=== PATIENT | male | born 1990 | race Caucasian/White ===

== ENCOUNTER 2021-03-10 11:09 | Inpatient (IN) | payer OTHER, MEDICAID, SELFPAY ==
[2021-03-10 11:11] VITALS: BP 162/96; PULSE 132; RESP 14; TEMP 36.6; O2SAT 95; BMI 28.3
--- NOTE | 2021-03-10 13:08 | ED.VIS.GEN ---
History of Present Illness Chief Complaint: ETOH Intox Informant: Patient Narrative: 30-year-old male presenting with EtOH withdrawal. Patient states that over the last year he is incrementally increased his drinking. He states that now he drinks about a gallon of vodka every day. When he stops drinking it only takes couple hours till he gets the shakes. Patient states that he recently tried a Xanax which he got off the street to try to help him detox but it only lasted for short while. Patient states he has no other significant other medical history. He is never had withdrawal seizure. Patient states he does not take any other drugs. He is a smoker. Past Medical History - Allergies and Home Meds Allergies/Adverse Reactions: Allergies No Known Allergies Allergy (Verified 03/10/21 11:11) Past Medical History: - - EtOH abuse Surgical History: noncontributory Lives: Alone Smoking Status: Current every day smoker Alcohol: Heavy Review of Systems General: Denies: Chills, Fever, Malaise, Subjective, Sweats, Weight loss, - Eyes: Denies: Visual changes - bilaterally, Diplopia ENT: Denies: Rhinorrhea, Sore throat Cardiovascular: Reports: Palpitations. Denies: Chest pain Respiratory: Denies: Dyspnea, Cough, Dyspnea on exertion Gastrointestinal: Denies: Abdominal pain, Nausea, Vomiting, Diarrhea, Melena, Hematochezia Genitourinary: Denies: Dysuria, Hematuria, Frequency Musculoskeletal: Denies: Back pain, Extremity Pain Skin: Denies: Rash, Wounds Neurological: Denies: Headache, Weakness, Numbness Psych: Denies: Depression, Anxiety, Suicidal thoughts, Suicidal ideations, -, - Physical Exam Vital Signs/Narrative: Vital Signs Temp Pulse Resp BP Pulse Ox 03/10/21 11:11 97.9 F 132 H 14 162/96 H 95 Inital Vital Signs reviewed: Yes General: Well nourished, No Acute Distress Head: Normocephalic, Atraumatic Eyes: Perrl. Negative for: Scleral icterus ENT: Moist mucous membranes, No rhinorrhea Cardiovascular: Regular rate, Regular rhythm Abdomen: Soft, Nontender, Nondistended Back: Nontender, Normal Inspection Extremities: Nontender, No edema Skin: Normal color, No rash. Negative for: Cyanosis, Diaphoresis, Jaundice Neurological: Alert, Oriented x3, Cranial nerves II-XII grossly intact Psychological: Normal affect, Normal Mood Diagnostic/Tx/Re-eval Clinical Impression(s) from Imaging Studies Chest X-Ray 03/10/21 13:22 IMPRESSION: Normal x-ray examination of the chest. Electronically Signed: Ronnie Chapin MD at 13:46 EDT , Service support , Laboratory Data 03/10/21 03/10/21 03/10/21 12:50 12:50 12:50 WBC 6.6 RBC 5.49 Hgb 17.9 H Hct 51.8 MCV 94.4 H MCH 32.6 H MCHC 34.6 RDW Std Deviation 46.0 H RDW Coeff of Geremias 13.2 Plt Count 263 MPV 9.4 Immature Gran % (Auto) 0.600 Neut % (Auto) 68.2 Lymph % (Auto) 20.6 [place] % (Auto) 9.8 Eos % (Auto) 0.0 Baso % (Auto) 0.8 Absolute Neuts (auto) 4.5 Absolute Lymphs (auto) 1.35 Nucleated RBC % 0 PT 11.3 L INR 0.9 Sodium 141 Potassium 3.4 L Chloride 101 Carbon Dioxide 31.0 Anion Gap 9 BUN 10 Creatinine 0.98 Estim Creat Clear Calc 117.39 Est GFR (MDRD) Af Amer 115 Est GFR (MDRD) Non-Af 95 BUN/Creatinine Ratio 10.2 Glucose 116 H Calcium 8.5 Total Bilirubin 0.30 Direct Bilirubin 0.12 AST 55 H ALT 119 H Alkaline Phosphatase 82 Troponin I < 0.015 Total Protein 7.7 Albumin 4.1 Globulin 3.6 Albumin/Globulin Ratio 1.1 Ethyl Alcohol 03/10/21 12:50 WBC RBC Hgb Hct MCV MCH MCHC RDW Std Deviation RDW Coeff of Geremias Plt Count MPV Immature Gran % (Auto) Neut % (Auto) Lymph % (Auto) [place] % (Auto) Eos % (Auto) Baso % (Auto) Absolute Neuts (auto) Absolute Lymphs (auto) Nucleated RBC % PT INR Sodium Potassium Chloride Carbon Dioxide Anion Gap BUN Creatinine Estim Creat Clear Calc Est GFR (MDRD) Af Amer Est GFR (MDRD) Non-Af BUN/Creatinine Ratio Glucose Calcium Total Bilirubin Direct Bilirubin AST ALT Alkaline Phosphatase Troponin I Total Protein Albumin Globulin Albumin/Globulin Ratio Ethyl Alcohol 330.0 H* - Medical Decision Making Patient presents with EtOH withdrawal and is hypertensive and tachycardic. He is given IV fluids and 2 mg of Ativan IV. EKG shows sinus rhythm at 121 bpm without signs of ischemic change. This x-ray shows no acute cardiopulmonary process as interpreted by myself and radiology does agree. Patient's H&H is stable. Platelets are normal. Renal function and electrolytes are normal except for potassium of 3.4. EtOH is 333. LFTs mildly elevated. Troponin is negative. Patient discussed with hospitalist who accepted patient to [facility]. Impression: 1. EtOH withdrawal 2. EtOH intoxication ED Disposition - Plan for ED Patient: Disposition: Acute Care Hospital [facility]
--- NOTE | 2021-03-10 13:19 | EKG12_ITS ---
Test Reason : MEDICAL CLEARANCE Blood Pressure : / mmHG Vent. Rate : 121 BPM Atrial Rate : 121 BPM P-R Int : 148 ms QRS Dur : 088 ms QT Int : 302 ms P-R-T Axes : 038 -53 028 degrees QTc Int : 428 ms Sinus tachycardia Left anterior fascicular block Abnormal ECG Confirmed by DAIJA LANDA, RO ([id number]), electronic news gathering editor JESSICA BARTLETT ([id number]) on 03/12/2021 8:58:47 AM Referred By: ELLEN Confirmed By:RO CHOE MD
--- NOTE | 2021-03-10 13:22 | RAD_ITS ---
STUDY: X-RAY CHEST REASON FOR EXAM: Male, 30 years old. Tachycardia TECHNIQUE: Single AP portable view of the chest. COMPARISON: None. FINDINGS: The lungs are clear and expanded. There is no demonstrated pleural abnormality. Normal size heart. Normal mediastinum and mayito. Normal visualized pulmonary arteries. Normal visualized aortic arch and descending thoracic aorta. Normal visualized thoracic spine. Normal visualized ribs, clavicles, and shoulders. There is no demonstrated abnormality of the visualized soft tissue structures of the upper abdomen. RAD/Chest 1 View (Portable) IMPRESSION: Normal x-ray examination of the chest. Electronically Signed: Ronnie Chapin MD at 13:46 EDT , Service support ,
[2021-03-10] MEDS: 0.9% Normal Saline 1,000 ML 1000 ML IV (13:35)
[2021-03-10] MEDS: LORazepam 2 MG/ML Syringe IV (13:35)
[2021-03-10 13:37] LABS: Absolute Lymphocyte Count 1.35 X10^3/uL (0.83-4.51); Absolute Neutrophil Count 4.5 X10^3/uL (2.0-7.7); Basophil# 0.05 X10^3/uL; Basophil% 0.8 % (0-1); Hematocrit 51.8 % (40-54); Hemoglobin 17.9 g/dL (13.0-16.5); Lymphocyte # 1.35 X10^3/ul (0.83-4.51); Lymphocyte % 20.6 % (19-41); Mean Corp Hgb Conc 34.6 g/dL (32-36); Mean Corpuscular Hgb 32.6 pg (27.0-32.0); Mean Corpuscular Volume 94.4 fL (80-94); Mean Platelet Vol. 9.4 fl (6.2-12.0); Monocyte# 0.64 X10^3/uL; Monocyte% 9.8 % (0-10); NRBC Flagged by Analyzer 0 % (0-5); Neutrophil # 4.48 X10^3/uL (2.7-7.7); Neutrophil % 68.2 % (47-70); Platelet Count 263 K/mm3 (150-450); RBC Distribution Width CV 13.2 % (11.6-14.6); Red Blood Count 5.49 M/mm3 (4.6-6.2); White Blood Count 6.6 K/mm3 (4.4-11.0)
[2021-03-10 13:42] LABS: International Normalized Ratio 0.9; Prothrombin Time (Protime)PT. 11.3 SECONDS (11.7-14.9)
[2021-03-10 13:56] LABS: ALB/GLOB Ratio 1.1 RATIO (0.9-2.4); AST(SGOT) 55 U/L (15-37); Alanine Aminotransfer ALT/SGPT 119 U/L (16-61); Albumin, Serum 4.1 g/dL (3.2-5.0); Alkaline Phosphatase 82 U/L (45-117); Anion Gap 9 (5-15); BUN 10 mg/dL (7-18); BUN/Creat Ratio 10.2 RATIO (10-20); Bilirubin, Direct 0.12 mg/dL (0.00-0.30); Calcium,Total 8.5 mg/dL (8.5-10.1); Chloride 101 mmol/L (98-107); Creatinine, Serum 0.98 mg/dL (0.70-1.30); EST Glomerular Filtration Rate 95 mL/min (>60); Est Glom Filt Rate - Afr Amer 115 mL/min (>60); Estimated Creatinine Clearance 117.39 ml/min; Globulin 3.6 g/dL (2.2-4.2); Glucose 116 mg/dL (74-106); Potassium 3.4 mmol/L (3.5-5.1); Protein, Total 7.7 g/dL (6.4-8.2); Sodium Level 141 mmol/L (136-145)
--- NOTE | 2021-03-10 14:39 | CM.ED ---
SOCIAL WORK Referral Source: Dr. Negron Reason for Consult: Substance Abuse Patient presents to [facility] ER for alcohol intoxication, requesting detox. Call to [facility] Treatment Navigator, Rosario. Updated on patient's admission. Rosario reports will update Gunjan who will complete assessment tomorrow. Plan: Admit to [facility], CLAIM REVIEW MEDICAL DIRECTOR, DENTIST/OWNER
--- NOTE | 2021-03-10 14:43 | HP.PCM_ITS ---
Problem List (1) Acute alcohol withdrawal Status: Acute (2) Acute alcohol intoxication Status: Acute (3) Tobacco abuse Status: Chronic (4) Alcohol abuse Status: Chronic History of Present Illness Date of Admission: 03/10/21 Chief Complaint: Requesting admission for alcohol detox. The patient is a 30 year old M with no significant past medical history presented to the emergency room requesting admission for acute alcohol intoxication with impending withdrawal for medical stabilization. Patient stated that he has been drinking over the last year, has been incrementally increasing his amount of drinking and nowadays, he drinks almost 1 gallon of vodka every day. He stated that he has lots of family issues and stressful s ituations and he just wants to forget. He mentioned that he tried to self detox with using Xanax that he got from his a friend but that did not work. He mentioned that he never went for detox program in the past. He denied use of other street drugs. Apart from anxiety which improved after he received Ativan in the ED, no other acute withdrawal symptoms. In the emergency department, he was tachycardic, blood pressure was slight elevated, other vital signs were stable. Routine blood work was remarkable for potassium of 3.4, otherwise normal. LFT revealed slightly elevated liver transaminases, alk phos and bilirubin are normal. EKG revealed sinus tachycardia, otherwise normal. Troponin is negative. Blood alcohol level was 330. Urine drug screen is pending. Patient is being admitted for acute alcohol intoxication/impending withdrawal for medical stabilization. Past Medical History Past Medical History (Chronic Problems): Chronic Problems Tobacco abuse (Chronic) Alcohol abuse (Chronic) Allergies No Known Allergies Allergy (Verified 03/10/21 11:11) Home Medications: Ambulatory Orders Medication Instructions Recorded NK 03/10/21 Surgical History: noncontributory Psychiatric History: No pertinent psych hx Lives: With Family Smoking Status: Current every day smoker Tobacco Use: Cigarettes Alcohol: Heavy Drugs: None - *Family History Maternal History Items: No pertinent history Paternal History Items: No pertinent history Review of Systems Constitutional: Denies: Anorexia, Chills, Fever, Weakness Eyes: Denies: Blurred vision, Double vision, Drainage, Redness HEENT: Denies: Difficulty Hearing, Dysphasia, Ear Pain, Eye Pain, Nasal Congestion, Sore Throat Cardiovascular: Denies: Chest Pain, Claudication, Chest Tightness, Edema, Heaviness, Palpitations, Syncope Respiratory: Denies: Cough, Pleuritic Pain, Shortness of Breath, Sputum production, Wheezing Gastrointestinal: Denies: Abdominal Pain, Constipation, Diarrhea, Nausea, Vomiting Genitourinary: Denies: Dysuria, Frequency, Hematuria Musculoskeletal: Denies: Arm Pain, Back Pain, Foot Pain Skin: Denies: Dryness, Rash Neurological: Denies: Balance problems, Double vision, Change in Speech, Slurred speech, Headaches, Incoordination Psychiatric: Denies: Anxiety, Depression Endocrine: Denies: Change in Body Habitus, Polydipsia, Polyuria VTE Information - Inpt Only VTE Present on Admission: No VTE Mechan Device Prophylaxis: None VTE Pharm Prophylaxis ordered?: No Patient Problems: Active and Suspected Problems Acute alcohol withdrawal (Acute) Acute alcohol intoxication (Acute) - Physical Exam Vitals/I&O's: Vital Signs Temp Pulse Resp BP Pulse Ox 97.9 F 132 H 14 162/96 H 95 03/10/21 11:11 03/10/21 11:11 03/10/21 11:11 03/10/21 11:11 03/10/21 11:11 Oxygen Delivery Method Room Air Weight: 203 lb 7.787 oz Body Mass Index (BMI) 28.3 General: Alert, Oriented x3, Cooperative, No apparent distress HEENT: Atraumatic, PERRLA, EOMI, Normocephalic Oral: Moist Mucosa, No Gingival or Mucosal Lesions/ Ulcerations Neck: Supple, No JVD, Negative Carotid Bruits, Trachea Midline, Thyroid Normal Size and Texture Lungs: Clear to auscultation, Normal air movement, No rhonchi, No wheeze, No rales Cardiovascular: Regular rate, Regular Rhythm, Normal S1, Normal S2, PMI Normal, Tachycardic Abdomen: Bowel Sounds Present, Soft, Non Tender, Non-Distended, No Hepato- splenomegaly Extremities: No clubbing, No cyanosis, No edema Skin: No rashes, No breakdown Lymphatic: No Cervical, Supraclavicular, or Inguinal Adenopathy Neurological: Cranial nerves II-XII grossly intact, Motor Exam 5/5 strength throughout Psych/Mental Status: Normal Affect, Appropriate, Alert and oriented to time, place, person, mood and affect Laboratory Results 03/10/21 12:50: WBC 6.6, RBC 5.49, Hgb 17.9 H, Hct 51.8, MCV 94.4 H, MCH 32.6 H, MCHC 34.6, RDW Std Deviation 46.0 H, RDW Coeff of Geremias 13.2, Plt Count 263, MPV 9.4, Immature Gran % (Auto) 0.600, Neut % (Auto) 68.2, Lymph % (Auto) 20.6, [place] % (Auto) 9.8, Eos % (Auto) 0.0, Baso % (Auto) 0.8, Absolute Neuts (auto) 4.5, Absolute Lymphs (auto) 1.35, Nucleated RBC % 0 03/10/21 12:50: PT 11.3 L, INR 0.9 03/10/21 12:50: Sodium 141, Potassium 3.4 L, Chloride 101, Carbon Dioxide 31.0, Anion Gap 9, BUN 10, Creatinine 0.98, Estim Creat Clear Calc 117.39, Est GFR (MDRD) Af Amer 115, Est GFR (MDRD) Non-Af 95, BUN/Creatinine Ratio 10.2, Glucose 116 H, Calcium 8.5, Total Bilirubin 0.30, Direct Bilirubin 0.12, AST 55 H, ALT 119 H, Alkaline Phosphatase 82, Troponin I < 0.015, Total Protein 7.7, Albumin 4.1, Globulin 3.6, Albumin/Globulin Ratio 1.1 03/10/21 12:50: Ethyl Alcohol 330.0 H* Assessment/Plan All Active Problems Acute alcohol withdrawal (Acute) Acute alcohol intoxication (Acute) This is a 30 years old male patient presented to the emergency room requesting admission for acute alcohol intoxication/withdrawal for medical stabilization. #1 acute alcohol desiccation/impending withdrawal: Admission blood alcohol level was 330. Urine drug screen is pending. Last drink was this morning. Plan: Admit to MedSurg floor, initiate alcohol withdrawal protocol with tapering phenobarbital, thiamine and folic acid supplement, as needed Bentyl, Neurontin, Vistaril, ibuprofen, Imodium, Zofran and trazodone, consult 180 program. #2 hypokalemia: Replace with p.o. K. Dur 40 mEq x 1. #3 elevated LFT: Due to alcoholic hepatitis. Bilirubin and alk phos are normal. #4 tobacco abuse: NicoDerm patch. #5 DVT prophylaxis: Low risk patient, no prophylaxis indicated. This note was generated with [employer] dictation software. It may contain incorrect words, spelling, and punctuation that were not noted in checking the note before signing. Inpatient E&M: [id number] Init Hosp L2
[2021-03-10 14:48] VITALS: BMI 28.4
[2021-03-10 14:52] VITALS: BP 162/96; PULSE 132; RESP 14; TEMP 36.6; O2SAT 97
[2021-03-10 15:14] VITALS: BMI 26.9
[2021-03-10 15:15] VITALS: BP 140/90; PULSE 105; RESP 18; TEMP 36.7; O2SAT 96
[2021-03-10 15:46] LABS: Lipase 118 U/L (73-393)
[2021-03-10 16:34] VITALS: BP 139/96; PULSE 112; RESP 18; TEMP 36.6; O2SAT 98
[2021-03-10] MEDS: 0.9% Normal Saline 1,000 ML 100 ML IV (16:39)
[2021-03-10] MEDS: Potassium Chloride Oral Tablet 20 MEQ 40 MEQ PO (16:43)
[2021-03-10] MEDS: hydrOXYzine PAM 25 MG Capsule 50 MG PO ×2 (16:43→22:14)
[2021-03-10] MEDS: Phenobarbital 32.4 MG Tablet 64.8 MG PO ×2 (16:44→20:04)
[2021-03-10] MEDS: Ibuprofen 600 MG Tablet PO (16:44)
[2021-03-10] MEDS: Dicyclomine 10 MG Capsule 20 MG PO (16:44)
[2021-03-10] MEDS: Ondansetron 8 MG Tablet PO (16:44)
[2021-03-10 17:54] LABS: Amphetamine Urine VISTA NEGATIVE (<1000 ng/mL); Barbiturate Urine VISTA NEGATIVE (< 200 ng/mL); Benzodiazepine Urine VISTA POSITIVE (< 200 ng/mL); Cocaine Urine VISTA NEGATIVE (< 300 ng/mL); Ecstacy Urine VISTA NEGATIVE (< 500 ng/mL); Methadone Urine VISTA NEGATIVE (< 300 ng/mL); PCP Urine VISTA NEGATIVE (< 25 ng/mL); THC Urine VISTA NEGATIVE (< 50 ng/mL); Vista UDS pH Range 6
[2021-03-10 20:02] VITALS: BP 153/83; PULSE 103; RESP 18; TEMP 36.6; O2SAT 95
[2021-03-10] MEDS: Gabapentin 300 MG Capsule PO (20:04)
[2021-03-10] MEDS: traZODone 100 MG Tablet PO (22:14)
[2021-03-11 00:43] VITALS: BP 94/73; PULSE 67; RESP 18; TEMP 36.8; O2SAT 98
[2021-03-11] MEDS: Dicyclomine 10 MG Capsule 20 MG PO ×3 (00:47→20:06)
[2021-03-11] MEDS: Ibuprofen 600 MG Tablet PO ×2 (00:47→09:38)
[2021-03-11] MEDS: Phenobarbital 32.4 MG Tablet 64.8 MG PO ×6 (00:47→19:57)
[2021-03-11] MEDS: hydrOXYzine PAM 25 MG Capsule 50 MG PO ×3 (04:15→16:11)
--- NOTE | 2021-03-11 09:25 | ADDICTION ---
This senior grant writer met with PT to conduct ASAM, MSE, AUDIT assessments and to plan for d/c. PT A+Ox4. All assessments completed, faxed to [facility] and placed in PT's chart. PT refused f/u coordination but did engage with this senior grant writer to complete assessments and was appropriate throughout. PT states that he is considering going into treatment with [facility] in [facility]. This senior grant writer provided resources to patient including treatment agency contact information in [facility]. PT states that his father will be providing transportation upon d/c from [facility].
[2021-03-11 09:28] VITALS: BP 154/77; PULSE 78; RESP 18; TEMP 36.3; O2SAT 98
[2021-03-11] MEDS: Folic Acid 1 MG Tablet PO (09:35)
[2021-03-11] MEDS: Thiamine Hydrochloride 100 MG Tablet PO (09:36)
[2021-03-11] MEDS: Ondansetron 8 MG Tablet PO (09:38)
[2021-03-11] MEDS: Gabapentin 300 MG Capsule PO (09:38)
--- NOTE | 2021-03-11 11:07 | PN.HOSP_ITS ---
Subjective Subjective: CIWA of 17 this morning. Objective Data Objective Data Vital Signs: Vital Signs Temp Pulse Resp BP Pulse Ox 97.3 F L 78 18 154/77 H 98 03/11/21 09:28 03/11/21 09:28 03/11/21 09:28 03/11/21 09:28 03/11/21 09:28 Oxygen Delivery Method Room Air Weight: 198 lb 3.129 oz Body Mass Index (BMI) 26.9 Intake & Output: Intake and Output for Last 24 Hours 03/10/21 03/11/21 03/12/21 03:59 03:59 03:59 Intake Total 2500 / 2500 Balance 2500 / 2500 Lab / Micro Data Result Diagrams: 03/10/21 12:50 03/10/21 12:50 Labs: Laboratory Results - last 24 hr 03/10/21 03/10/21 03/10/21 12:50 12:50 12:50 WBC 6.6 RBC 5.49 Hgb 17.9 H Hct 51.8 MCV 94.4 H MCH 32.6 H MCHC 34.6 RDW Std Deviation 46.0 H RDW Coeff of Geremias 13.2 Plt Count 263 MPV 9.4 Immature Gran % (Auto) 0.600 Neut % (Auto) 68.2 Lymph % (Auto) 20.6 [place] % (Auto) 9.8 Eos % (Auto) 0.0 Baso % (Auto) 0.8 Absolute Neuts (auto) 4.5 Absolute Lymphs (auto) 1.35 Nucleated RBC % 0 PT 11.3 L INR 0.9 Sodium 141 Potassium 3.4 L Chloride 101 Carbon Dioxide 31.0 Anion Gap 9 BUN 10 Creatinine 0.98 Estim Creat Clear Calc 117.39 Est GFR (MDRD) Af Amer 115 Est GFR (MDRD) Non-Af 95 BUN/Creatinine Ratio 10.2 Glucose 116 H Calcium 8.5 Total Bilirubin 0.30 Direct Bilirubin 0.12 AST 55 H ALT 119 H Alkaline Phosphatase 82 Troponin I < 0.015 Total Protein 7.7 Albumin 4.1 Globulin 3.6 Albumin/Globulin Ratio 1.1 Lipase Urine Opiates Screen Urine Methadone Screen Ur Barbiturates Screen Ur Phencyclidine Scrn Ur Amphetamines Screen U Methamphetamin-MDMA U Benzodiazepines Scrn Urine Cocaine Screen U Cannabinoids Screen Ur Drug Screen Comment Ethyl Alcohol 03/10/21 03/10/2121 12:50 12:50 17:20 WBC RBC Hgb Hct MCV MCH MCHC RDW Std Deviation RDW Coeff of Geremias Plt Count MPV Immature Gran % (Auto) Neut % (Auto) Lymph % (Auto) [place] % (Auto) Eos % (Auto) Baso % (Auto) Absolute Neuts (auto) Absolute Lymphs (auto) Nucleated RBC % PT INR Sodium Potassium Chloride Carbon Dioxide Anion Gap BUN Creatinine Estim Creat Clear Calc Est GFR (MDRD) Af Amer Est GFR (MDRD) Non-Af BUN/Creatinine Ratio Glucose Calcium Total Bilirubin Direct Bilirubin AST ALT Alkaline Phosphatase Troponin I Total Protein Albumin Globulin Albumin/Globulin Ratio Lipase 118 Urine Opiates Screen NEGATIVE Urine Methadone Screen NEGATIVE Ur Barbiturates Screen NEGATIVE Ur Phencyclidine Scrn NEGATIVE Ur Amphetamines Screen NEGATIVE U Methamphetamin-MDMA NEGATIVE U Benzodiazepines Scrn POSITIVE H Urine Cocaine Screen NEGATIVE U Cannabinoids Screen NEGATIVE Ur Drug Screen Comment Ethyl Alcohol 330.0 H* Radiography Diagnostic Testing: Radiology Impression Chest X-Ray 03/10/21 13:22 IMPRESSION: Normal x-ray examination of the chest. Electronically Signed: Ronnie Chapin MD at 13:46 EDT , Service support , Physical Exam Const alert, oriented x3 and no apparent distress HEENT moist oral mucous membranes Head and Scalp: normocephalic Eyes PERRL, EOMs intact bilaterally and conjunctivae normal Neck supple and no JVD Resp normal respiratory effort, no retractions, no use of accessory muscles and clear to auscultation bilaterally Auscultation: Negative for crackles, rales, rhonchi or wheezes Cardio regular rate, regular rhythm, S1 normal heart sound, S2 normal heart sound, no murmurs and no gallops GI normal to inspection, nondistended, normoactive bowel sounds, soft to palpation and non-tender; Negative for hepatosplenomegaly Extremity normal to inspection and no clubbing, cyanosis or edema Skin no rashes or lesions noted Neuro moves all extremities, no focal motor deficits and no sensory deficits noted Psych mental status grossly normal and affect normal Assessment & Plan Assessment/Plan (1) Acute alcohol withdrawal: Status: Acute (2) Elevated LFTs: Status: Acute Code(s): R79.89 - Other specified abnormal findings of blood chemistry (3) Tobacco abuse: Status: Chronic Code(s): Z72.0 - Tobacco use (4) Alcohol abuse: Status: Chronic Code(s): F10.10 - Alcohol abuse, uncomplicated Plan: 1. Acute alcohol withdrawal/elevated LFTs/tobacco abuse -Continue with alcohol withdrawal protocol -Plan for outpatient follow-up with 180 -We will continue to monitor his LFTs though this is obviously secondary to his drinking -Discussed cessation, and will place him on a NicoDerm patch DVT: Ambulation Inpatient E&M: [id number] Subs Hosp L2
[2021-03-11 12:17] VITALS: BP 136/83; PULSE 65; RESP 18; TEMP 36.7; O2SAT 99
[2021-03-11 16:04] VITALS: BP 123/85; PULSE 68; RESP 18; TEMP 36.5; O2SAT 94
[2021-03-11 21:00] VITALS: BP 134/83; PULSE 75; RESP 16; TEMP 36.6; O2SAT 96
[2021-03-12] MEDS: Phenobarbital 32.4 MG Tablet 64.8 MG PO ×4 (00:24→13:08)
[2021-03-12 03:00] VITALS: BP 130/71; PULSE 61; RESP 16; TEMP 36.4; O2SAT 98
[2021-03-12 06:27] LABS: Absolute Lymphocyte Count 0.99 X10^3/uL (0.83-4.51); Absolute Neutrophil Count 2.9 X10^3/uL (2.0-7.7); Basophil# 0.02 X10^3/uL; Basophil% 0.5 % (0-1); Hematocrit 50.3 % (40-54); Hemoglobin 16.9 g/dL (13.0-16.5); Lymphocyte # 0.99 X10^3/ul (0.83-4.51); Lymphocyte % 22.8 % (19-41); Mean Corp Hgb Conc 33.6 g/dL (32-36); Mean Corpuscular Hgb 31.4 pg (27.0-32.0); Mean Corpuscular Volume 93.5 fL (80-94); Mean Platelet Vol. 9.8 fl (6.2-12.0); Monocyte# 0.36 X10^3/uL; Monocyte% 8.3 % (0-10); NRBC Flagged by Analyzer 0 % (0-5); Neutrophil # 2.93 X10^3/uL (2.7-7.7); Neutrophil % 67.5 % (47-70); Platelet Count 156 K/mm3 (150-450); RBC Distribution Width CV 12.8 % (11.6-14.6); RBC Distribution Width SD 43.9 fl (35.1-43.9); Red Blood Count 5.38 M/mm3 (4.6-6.2); White Blood Count 4.3 K/mm3 (4.4-11.0)
[2021-03-12 06:51] LABS: AST(SGOT) 30 U/L (15-37); Alanine Aminotransfer ALT/SGPT 104 U/L (16-61); Albumin, Serum 3.2 g/dL (3.2-5.0); Alkaline Phosphatase 86 U/L (45-117); Anion Gap 5 (5-15); BUN 10 mg/dL (7-18); BUN/Creat Ratio 12.3 RATIO (10-20); Calcium,Total 8.5 mg/dL (8.5-10.1); Chloride 104 mmol/L (98-107); Creatinine, Serum 0.81 mg/dL (0.70-1.30); EST Glomerular Filtration Rate 118 mL/min (>60); Est Glom Filt Rate - Afr Amer 143 mL/min (>60); Estimated Creatinine Clearance 146.36 ml/min; Globulin 3.3 g/dL (2.2-4.2); Glucose 92 mg/dL (74-106); Potassium 3.8 mmol/L (3.5-5.1); Protein, Total 6.5 g/dL (6.4-8.2); Sodium Level 136 mmol/L (136-145)
[2021-03-12 09:00] VITALS: BP 150/85; PULSE 86; RESP 18; TEMP 36.7; O2SAT 96
[2021-03-12] MEDS: Thiamine Hydrochloride 100 MG Tablet PO (09:08)
[2021-03-12] MEDS: Folic Acid 1 MG Tablet PO (09:08)
--- NOTE | 2021-03-12 11:13 | PCM.DC ---
Discharge Instructions Outpatient Procedure Reason For Visit: ACUTE ALCOHOL INTOXICATION/IMPENDING WITHDRAWAL Diet Discharge Diet: No restrictions Activity Discharge Activity: Return to Normal Activity Dressing / Incision Call your doctor if you observe: Fever of 101 or Higher, Shortness of breath, Dizziness, Fainting spells, Swelling in the ankles, Chest pain and Increased palpitations (irregular heartbeat) Follow Up Care Test Results: Test results from this visit will be discussed in further detail at your follow-up appointment, if applicable. Discharge Plan Admission Admit Date/Time: 03/10/21 14:20 Attending Provider: Nik Marie Primary Care Provider: Care Physician,No Primary Instructions Patient Instructions: ED Alcohol Intoxication, ED Alcohol Abuse Additional Instructions / Restrictions: Follow-up with me 180 on discharge Discharge Orders/Prescriptions Prescriptions: No Action NK RF: 0 Referrals: Care Physician,No Primary [Primary Care Provider] - Disposition Patient Disposition: Home, self care
--- NOTE | 2021-03-12 13:59 | DS.PCM_ITS ---
Providers Date of Admission: 03/10/21 Primary Care Physician: No Primary Care Phys Reason For Visit: ACUTE ALCOHOL INTOXICATION/IMPENDING WITHDRAWAL Diagnosis Discharge Diagnosis (1) Acute alcohol withdrawal: Status: Acute (2) Elevated LFTs: Status: Chronic Code(s): R79.89 - Other specified abnormal findings of blood chemistry (3) Tobacco abuse: Status: Chronic Code(s): Z72.0 - Tobacco use (4) Alcohol abuse: Status: Chronic Code(s): F10.10 - Alcohol abuse, uncomplicated Medications at Discharge Home Medications NK 03/10/21 Hospital Course Operations None Procedures None Summary of Care Provided Minutes Spent on Discharge: 35 Hospital Course: PEr HPI: The patient is a 30 year old M with no significant past medical history presented to the emergency room requesting admission for acute alcohol intoxication with impending withdrawal for medical stabilization. Patient stated that he has been drinking over the last year, has been incrementally increasing his amount of drinking and nowadays, he drinks almost 1 gallon of vodka every day. He stated that he has lots of family issues and stressful situations and he just wants to forget. He mentioned that he tried to self detox with using Xanax that he got from his a friend but that did not work. He mentioned that he never went for detox program in the past. He denied use of other street drugs. Apart from anxiety which improved after he received Ativan in the ED, no other acute withdrawal symptoms. In the emergency department, he was tachycardic, blood pressure was slight elevated, other vital signs were stable. Routine blood work was remarkable for potassium of 3.4, otherwise normal. LFT revealed slightly elevated liver transaminases, alk phos and bilirubin are normal. EKG revealed sinus tachycardia, otherwise normal. Troponin is negative. Blood alcohol level was 330. Urine drug screen is pending. Patient is being admitted for acute alcohol intoxication/impending withdrawal for medical stabilization. Hospital Course: 1. Acute alcohol withdrawal/elevated LFTs/tobacco [id number] male presented to the hospital requesting detox and was going through alcohol withdrawal. Today he requested to be discharged home because he has child support payments to make and he cannot afford to miss anymore work as he was going to lose his job. I discussed with him that in the long-term it would be better for him to stay in complete the detox protocol and meet with 182 have a better chance of ensuring sobriety, however he elected to go home despite this discussion. LFTs did improve on the day of discharge, and I requested that if he has further withdrawal symptoms to return to the hospital, which he acknow ledged. Physical Exam Const alert, oriented x3 and no apparent distress HEENT moist oral mucous membranes Eyes PERRL, EOMs intact bilaterally and conjunctivae normal Neck supple and no JVD Resp normal respiratory effort, no retractions, no use of accessory muscles and clear to auscultation bilaterally Auscultation: Negative for crackles, rales, rhonchi or wheezes Cardio regular rate, regular rhythm, S1 normal heart sound, S2 normal heart sound, no murmurs and no gallops GI normal to inspection, nondistended, normoactive bowel sounds, soft to palpation and non-tender; Negative for hepatosplenomegaly Extremity normal to inspection and no clubbing, cyanosis or edema Skin no rashes or lesions noted Neuro moves all extremities, no focal motor deficits and no sensory deficits noted Psych mental status grossly normal and affect normal ABG / Lab / Microbiology Data Result Diagrams: 03/12/21 05:50 03/12/21 05:50 Laboratory: Laboratory Results - last 24 hr 03/12/21 03/12/21 05:50 05:50 WBC 4.3 L RBC 5.38 Hgb 16.9 H Hct 50.3 MCV 93.5 MCH 31.4 MCHC 33.6 RDW Std Deviation 43.9 RDW Coeff of Geremias 12.8 Plt Count 156 MPV 9.8 Immature Gran % (Auto) 0.900 Neut % (Auto) 67.5 Lymph % (Auto) 22.8 [place] % (Auto) 8.3 Eos % (Auto) 0.0 Baso % (Auto) 0.5 Absolute Neuts (auto) 2.9 Absolute Lymphs (auto) 0.99 Nucleated RBC % 0 Sodium 136 Potassium 3.8 Chloride 104 Carbon Dioxide 27.0 Anion Gap 5 BUN 10 Creatinine 0.81 Estim Creat Clear Calc 146.36 Est GFR (MDRD) Af Amer 143 Est GFR (MDRD) Non-Af 118 BUN/Creatinine Ratio 12.3 Glucose 92 Calcium 8.5 Total Bilirubin 0.30 AST 30 ALT 104 H Alkaline Phosphatase 86 Total Protein 6.5 Albumin 3.2 Globulin 3.3 Albumin/Globulin Ratio 1.0 D/C Instructions Discharge Diet: No restrictions Discharge Activity: Return to Normal Activity Call your doctor if you observe: Fever of 101 or Higher, Shortness of breath, Dizziness, Fainting spells, Swelling in the ankles, Chest pain and Increased palpitations (irregular heartbeat) Meaningful Use Info Meaningful Use Diagnoses (Choose all that apply): None applicable Discharge Plan Admission Admit Date/Time: 03/10/21 14:20 Attending Provider: Nik Marie Primary Care Provider: Care Physician,No Primary Instructions Patient Instructions: ED Alcohol Intoxication, ED Alcohol Abuse Additional Instructions / Restrictions: Follow-up with me 180 on discharge Discharge Orders/Prescriptions Prescriptions: No Action NK RF: 0 Referrals: Care Physician,No Primary [Primary Care Provider] - Disposition Patient Disposition: Home, self care Inpatient E&M: 95882 Disch Hosp
== END 2021-03-12 13:15 | disposition home or self-care (01) | DRG 897 ==
LOC: ED 14:24 → MS3 14:33
PROVIDERS: Admitting Provider Hospitalist; Emergency Provider Student in an Organized Health Care Education/Training Program; Visit Provider Family Medicine
DX: F10.239 Alcohol dependence with withdrawal, unspecified (principal); F10.229 Alcohol dependence with intoxication, unspecified; Y90.8 Blood alcohol level of 240 mg/100 ml or more; F17.210 Nicotine dependence, cigarettes, uncomplicated; E87.6 Hypokalemia; K70.10 Alcoholic hepatitis without ascites
CPT/HCPCS: 71045; 80053; 80076; 80307; 82077; 83690; 84484; 85025; 85610; 93005; 99284; 99406; J7030; A4216

== ENCOUNTER 2021-12-23 19:13 | Inpatient (IN) | payer OTHER, MEDICAID, SELFPAY ==
[2021-12-23] VITALS (8 sets, daily range): BP systolic 133–158; BP diastolic 79–116; PULSE 116–147; RESP 16–28; TEMP 36.5–37.2; O2SAT 95–97; BMI 26.5; BMI 25.2
--- NOTE | 2021-12-23 19:38 | EKG12_ITS ---
Test Reason : DYSRHYTHMIA Blood Pressure : / mmHG Vent. Rate : 111 BPM Atrial Rate : 111 BPM P-R Int : 152 ms QRS Dur : 084 ms QT Int : 330 ms P-R-T Axes : 052 -37 052 degrees QTc Int : 448 ms Sinus tachycardia with occasional Premature ventricular complexes Left axis deviation Septal infarct , age undetermined Abnormal ECG Confirmed by AZEEM LANDA, ANTONETTE ([id number]), assignment editor JESSICA BARTLETT ([id number]) on 12/24/2021 9:46:43 AM Referred By: SONIDO Confirmed By:ANTONETTE GANN MD
--- NOTE | 2021-12-23 19:52 | EX.ED.DYSGE1 ---
HPI History of Present Illness Chief Complaint: ETOH Intox Detail of Chief Complaint: Alcohol withdrawal requesting detox Informant: patient Onset/Context/Timing Onset: Today Context: Sudden Onset Timing: Continuous Quality: Palpitations, jitteriness, uneasiness Location: Systemic Current Severity: Severe Maximum Severity: Severe Worsened by: Decreased consumption of alcohol use Relieved by: Nothing Associated Symptoms Associated Symptoms: No other symptoms Narrative Narrative: Patient is a 31-year-old male who admits to drinking 1/5/day. He is only had a couple locum's today. He presents because of palpitations, nervousness, jitteriness, tremors and sense of uneasiness. He was in a detox program 1 year ago. He states he was seen here. He does admit to smoking. He denies drug use. Denies history of hepatitis or HIV. He denies headache, visual, ocular auditory symptoms. He denies respiratory symptoms. He does report nausea without diarrhea. He denies urologic symptoms. He has a significant scar left upper extremity due to compartment syndrome from traumatic injury. Prior similar symptoms: Yes Recent Illness/Hospitalization: No PFSH PFSH Home Medications NK 03/10/21 [History Last Taken Unknown] Allergy/AdvReac Type Severity Reaction Status Date / Time No Known Allergies Allergy Verified 12/23/21 19:33 Social History (Updated 12/23/21 @ 19:[address] Jatin Arzate MD) household members: none Smoking Status: Current every day smoker tobacco type: cigarettes alcohol intake: current alcohol intake frequency: 3 or more drinks per day substance use type: does not use ROS ROS ED Constitutional Constitutional ED: Reports sweats; Denies chills, fever(s), subjective or weight loss Eyes Eyes: Denies blurry vision, change in vision or diplopia ENT ENT ED: Denies ear pain, rhinorrhea or sore throat Cardiovascular Cardiovascular: Reports palpitations and racing heartbeat; Denies chest pain, orthopnea or paroxysmal nocturnal dyspnea Respiratory/Chest Respiratory/Chest: Denies cough, dyspnea, dyspnea on exertion, orthopnea, paroxysmal nocturnal dyspnea or sputum Gastrointestinal Gastrointestinal: Reports nausea; Denies abdominal pain, constipation, diarrhea, melena or vomiting Genitourinary Genitourinary ED: Denies dysuria, hematuria or urinary frequency Musculoskeletal Musculoskeletal: Denies arthralgias, myalgias or neck pain Integumentary Denies rash Neurologic Neurologic: Denies headache(s), paresthesias or weakness Psychiatric Psychiatric: Reports anxiety; Denies depression or suicidal thoughts Endocrine Endocrinology: Denies polydipsia, polyphagia or polyuria EXAM Physical Exam Const Vital Signs: 12/23/21 19:14 12/23/21 19:33 12/23/21 19:45 Temperature 97.7 F L Temperature Source Temporal Pulse Rate 147 H 129 H 143 H Respiratory Rate 18 28 H 28 H Blood Pressure 158/116 H 144/106 H Blood Pressure Mean 130 118 Blood Pressure Source Monitor Monitor Blood Pressure Position Semi-Fowlers Semi-Fowlers Blood Pressure Location Left Arm Left Arm Pulse Ox 95 Oxygen Delivery Method Room Air Positive well nourished and well developed General Appearance ED: well developed and other Patient appears nervous and fidgety. ; Negative for cyanotic, diaphoretic or NAD HEENT Reports TM's clear and moist mucous membranes Negative for trauma or tenderness Tympanic Membrane ED: Yes TM's clear Eyes PERRL and EOMs intact bilaterally General Eye ED: Negative for pale conjunctiva or scleral icterus Neck no lymphadenopathy, supple and no JVD Chest Wall inspection of chest normal and palpation of chest normal Resp normal respiratory effort and clear to auscultation bilaterally Cardio regular rhythm, S1 normal heart sound, S2 normal heart sound and no murmurs; Negative for regular rate Rate: tachycardic GI normal to inspection, nondistended, normoactive bowel sounds, non-tender and non-distended Palpation: soft Back/Spine no CVA tenderness Cervical Spine: Negative for cervical spine tenderness Thoracic Spine / Upper Back: Negative for thoracic spinal tenderness or paraspinal muscle tenderness Extremity normal to inspection General Extremety ED: Negative for edema or tenderness General Extremity: Negative for edema Neuro oriented x3, CN's II-XII intact bilaterally and no sensory deficits noted Neuro Narrative: DTRs are 4+. There is no clonus. Sensorium / Orientation: alert Motor Exam: strength 5/5 throughout Psych Mood & Affect: anxious Skin no rashes or lesions noted and no wounds Skin Narrative: Old scars noted without evidence of infection. No recent trauma. MDM MDM MDM Narrative Medical decision making narrative: Patient notes with symptoms consistent with alcohol withdrawal. He was treated with IV Ativan and p.o. phenobarbital. Appropriate labs were obtained. Will contact hospitalist for admission. Lab Data Labs: Laboratory Results - last 24 hr 12/23/21 12/23/21 12/23/21 20:05 20:05 20:05 WBC 4.4 RBC 5.13 Hgb 16.9 H Hct 45.0 MCV 87.7 MCH 32.9 H MCHC 37.6 H RDW Std Deviation 38.1 RDW Coeff of Geremias 11.9 Plt Count 242 MPV 9.0 Immature Gran % (Auto) 0.200 Neut % (Auto) 60.3 Lymph % (Auto) 28.9 [place] % (Auto) 10.4 H Eos % (Auto) 0.0 Baso % (Auto) 0.2 Absolute Neuts (auto) 2.7 Absolute Lymphs (auto) 1.28 Nucleated RBC % 0 Sodium 142 Potassium 3.6 Chloride 103 Carbon Dioxide 32.0 Anion Gap 7 BUN 13 Creatinine 1.07 Estim Creat Clear Calc 109.79 Est GFR (MDRD) Af Amer 103 Est GFR (MDRD) Non-Af 86 BUN/Creatinine Ratio 12.1 Glucose 146 H Calcium 8.7 Total Bilirubin 0.40 AST 31 ALT 68 H Alkaline Phosphatase 78 Total Protein 7.9 Albumin 4.2 Globulin 3.7 Albumin/Globulin Ratio 1.1 Ethyl Alcohol 401.0 H* EKG Initial EKG: Attestation: I personally reviewed and interpreted this EKG as follows: Interpretation: Sinus Tachycardia (Ventricular rate is 111. VT interval is 152 ms. QS duration 84 ms. QT duration 330 ms. Codorus to the left. Decreased anterior force noted. There is a premature ventricular beat noted. There is no acute ischemic changes noted.) Discharge Plan Triage Chief Complaint: ETOH Intox ED Provider: Jatin Arzate Dx/Rx/DC Orders Clinical Impression: Acute alcohol intoxication, Alcohol abuse, Acute alcohol withdrawal, Acute hyperglycemia, Sinus tachycardia Prescriptions: No Action NK RF: 0 Primary Care Provider: Care Physician,No Primary Referrals: Care Physician,No Primary [Primary Care Provider] - Disposition Disposition: [facility]
[2021-12-23] MEDS: Phenobarbital 32.4 MG Tablet 97.2 MG PO (19:56)
[2021-12-23] MEDS: LORazepam 2 MG/ML Syringe 1 MG IV (20:02)
[2021-12-23 20:31] LABS: ALB/GLOB Ratio 1.1 RATIO (0.9-2.4); AST(SGOT) 31 U/L (15-37); Alanine Aminotransfer ALT/SGPT 68 U/L (16-61); Albumin, Serum 4.2 g/dL (3.2-5.0); Alkaline Phosphatase 78 U/L (45-117); Anion Gap 7 (5-15); BUN 13 mg/dL (7-18); BUN/Creat Ratio 12.1 RATIO (10-20); Calcium,Total 8.7 mg/dL (8.5-10.1); Chloride 103 mmol/L (98-107); Creatinine, Serum 1.07 mg/dL (0.70-1.30); EST Glomerular Filtration Rate 86 mL/min (>60); Est Glom Filt Rate - Afr Amer 103 mL/min (>60); Estimated Creatinine Clearance 109.79 ml/min; Globulin 3.7 g/dL (2.2-4.2); Glucose 146 mg/dL (74-106); Potassium 3.6 mmol/L (3.5-5.1); Protein, Total 7.9 g/dL (6.4-8.2); Sodium Level 142 mmol/L (136-145)
--- NOTE | 2021-12-23 20:42 | CM.ED ---
JACI Note: Referral Source: Case Find Referral Reason: [facility]ST[facility] SW met with patient. Patient reports he is at the hospital for detox. He is familiar with [facility] program and rules as he has been here before. He voiced knowledge of rules regarding the program and voiced no concerns. Patient reports his drug of choice is alcohol and he drinks 1/5th a day. His last drink was 1 hour ago and he has been drinking all day. Patient said that when he left the [facility] program before he stopped drinking by myself and was not linked with outpatient AOD treatment. Patient said that he has been drinking for the past 6 months. He reports no current AOD counselor or therapist. JACI called Sendy at [facility]. She was provided with demographic information and will update the addiction therapistBlair Plan: [facility] admission Priscila IVY
[2021-12-23 20:44] LABS: Absolute Lymphocyte Count 1.28 X10^3/uL (0.83-4.51); Absolute Neutrophil Count 2.7 X10^3/uL (2.0-7.7); Basophil# 0.01 X10^3/uL; Basophil% 0.2 % (0-1); Lymphocyte # 1.28 X10^3/ul (0.83-4.51); Lymphocyte % 28.9 % (19-41); Monocyte# 0.46 X10^3/uL; Monocyte% 10.4 % (0-10); NRBC Flagged by Analyzer 0 % (0-5); Neutrophil # 2.67 X10^3/uL (2.7-7.7); Neutrophil % 60.3 % (47-70); POSITIVE COUNT YES
[2021-12-23 20:45] LABS: Differential Indicated SCAN CRITERIA MET
[2021-12-23 21:00] LABS: Anisocytosis RARE; Platelet Estimate ADEQUATE (ADEQ); Red Cell Morphology N CHROM NORMAL (NORM C&C)
--- NOTE | 2021-12-23 21:00 | PCM.HP.STD ---
HPI - General General Date of Admission: 12/23/21 Date of Service: 12/23/21 Chief Complaint: EtOH withdrawal HPI Narrative The patient is a 31 y/o M w/ PMHx: EtOH abuse (~1/5th liquor, malt drinks daily), Hx polysubstance abuse (Meth hx, snorted, denies IVDA), Anxiety and Depression, Tobacco use who presents to the [facility] on 12/23/21 w/ noted acute EtOH withdrawal, onset starting early afternoon following last EtOH intake 2 hours prior to ED arrival but notes he has been decreasing his amount with onset of nausea, tremors, agitation, tactile disturbances. Patient interested in attaining sober status. He notes feeling improved in the ED following ativan and phenobarbital oral regimen per ED physician. He does admit to prior seizures associated with EtOH withdrawal but none currently. Work-up in the ED included T 90.9, heart rate 137, BP 135/79, respiratory rate 28, 95% on room air, CBC with WC 4.4, hemoglobin 16.9, platelet 242 without marked shift, CMP with glucose 146, ALT 68 otherwise not marked appearing, ethyl alcohol level 401. [facility] Medical History (Updated 12/23/21 @ 21:[address] Trudi Orozco MD) Alcohol abuse Alcohol abuse Anxiety and depression Polysubstance abuse Tobacco abuse Home Medications NK 03/10/21 [History Last Taken Unknown] Allergy/AdvReac Type Severity Reaction Status Date / Time No Known Allergies Allergy Verified 12/23/21 19:33 Family History (Updated 12/23/21 @ 21:[address] Trudi Orozco MD) Mother Anxiety and depression Alcohol abuse Father Anxiety and depression Alcohol abuse Surgical History (Updated 12/23/21 @ 21:[address] Trudi Orozco MD) History of fasciotomy History of hand surgery Social History (Updated 12/23/21 @ 21:[address] Trudi Orozco MD) household members: other details: Currently lives with his father. Smoking Status: Current every day smoker tobacco type: cigarettes alcohol intake: current alcohol intake frequency: 3 or more drinks per day details: 1/5th liquor daily, malt liquors. substance use type: former substance user Date of last use: Former meth use, snorted. ROS ROS Narrative Admission Review of Systems: CONSTITUTIONAL: No weight loss, fever, chills, + weakness or fatigue. HEENT: Eyes: No visual loss, blurred vision, double vision or yellow sclerae. Ears, Nose, Throat: No hearing loss, sneezing, congestion, runny nose or sore throat. SKIN: No rash or itching, lesions, wounds. CARDIOVASCULAR: No chest pain, chest pressure or chest discomfort, palpitations, edema, orthopnea, syncopal events. RESPIRATORY: No shortness of breath, cough or sputum, wheezing, hemoptysis. GASTROINTESTINAL: + anorexia, nausea, No vomiting or diarrhea, abdominal pain, melena, BRBPR. GENITOURINARY: No dysuria, frequency, urgency or retention. NEUROLOGICAL: + Tremors, tactile disturbances, No headache, dizziness, syncope, paralysis, ataxia, focal weakness, change in bowel or bladder control, seizure. MUSCULOSKELETAL: No muscle, back pain, joint pain or stiffness. HEMATOLOGIC: No anemia, bleeding or bruising. LYMPHATICS: No enlarged nodes. No history of splenectomy. PSYCHIATRIC: + history of depression or anxiety. ENDOCRINOLOGIC: No reports of sweating, cold or heat intolerance. No polyuria or polydipsia. ALLERGIES: No history of asthma, hives, eczema or rhinitis. Vital Signs Vital Signs Vital Signs: 12/23/21 19:14 12/23/21 19:33 12/23/21 19:45 Temperature 97.7 F L Temperature Source Temporal Pulse Rate 147 H 129 H 143 H Respiratory Rate 18 28 H 28 H Blood Pressure 158/116 H 144/106 H Blood Pressure Mean 130 118 Blood Pressure Source Monitor Monitor Blood Pressure Position Semi-Fowlers Semi-Fowlers Blood Pressure Location Left Arm Left Arm Pulse Ox 95 Oxygen Delivery Method Room Air Weight Weight: 195 lb 12.328 oz Body Mass Index (BMI) 26.5 Physical Exam Narrative Physical Examination: General: Awake, alert, oriented x 3 and cooperative, seated upright in the ED bed, anxious, tachycardic, tremulous. Skin: Normal color, normal turgor, no icterus, no cyanosis. HEENT: AT/NC, EOMI, PERRLA, dry MM, no carotid bruits or JVD noted. Lungs: CTA bilaterally, moderate effort, mild decrease BL bases, no rales, ronchi or wheezing. Heart: Tachycardic with regular rhythm; no gallop, rub audible. Abdomen: Soft, NTTP, ND, normal BS, no marked HSM. Extremities: No cyanosis, clubbing, or edema. Neurological: Patient awake, alert, oriented as noted, cognitive function intact; pupils equally reactive to light and accommodation, cranial nerves II-XII grossly normal, moving all 4 extremities, no focal deficits, strength mildly global decreased secondary to acute presentation, anxious, tremulous, mildly agitated. Psychiatric: Affect appears agitated, no acute evidence of depressive or anxiety feelings. Results Lab / Micro Data Result Diagrams: 12/23/21 20:05 12/23/21 20:05 Labs: Laboratory Results - last 24 hr 12/23/21 20:05: WBC 4.4, RBC 5.13, Hgb 16.9 H, Hct 45.0, MCV 87.7, MCH 32.9 H, MCHC 37.6 H, RDW Std Deviation 38.1, RDW Coeff of Geremias 11.9, Plt Count 242, MPV 9.0, Immature Gran % (Auto) 0.200, Neut % (Auto) 60.3, Lymph % (Auto) 28.9, [place] % (Auto) 10.4 H, Eos % (Auto) 0.0, Baso % (Auto) 0.2, Absolute Neuts (auto) 2.7, Absolute Lymphs (auto) 1.28, Nucleated RBC % 0 12/23/21 20:05: Sodium 142, Potassium 3.6, Chloride 103, Carbon Dioxide 32.0, Anion Gap 7, BUN 13, Creatinine 1.07, Estim Creat Clear Calc 109.79, Est GFR (MDRD) Af Amer 103, Est GFR (MDRD) Non-Af 86, BUN/Creatinine Ratio 12.1, Glucose 146 H, Calcium 8.7, Total Bilirubin 0.40, AST 31, ALT 68 H, Alkaline Phosphatase 78, Total Protein 7.9, Albumin 4.2, Globulin 3.7, Albumin/Globulin Ratio 1.1 12/23/21 20:05: Ethyl Alcohol 401.0 H* Assessment & Plan Assessment/Plan (1) Acute alcohol withdrawal: PLAN: The patient is a 31 y/o M w/ PMHx: EtOH abuse (~1/5th liquor, malt drinks daily), Hx polysubstance abuse (Meth hx, snorted, denies IVDA), Anxiety and Depression, Tobacco use who presents to the [facility] on 12/23/21 w/ noted acute EtOH withdrawal, onset starting early afternoon following last EtOH intake 2 hours prior to ED arrival but notes he has been decreasing his amount. #1. Acute EtOH Withdrawal: Will admit to MS, routine labs obtained in the ED upon presentation. Given interest in sobriety, will initiate and continue on protocol with taper course of Phenobarbital, scheduled gabapentin for seizure prophylaxis, as needed Catapres, Bentyl, Vistaril, IV fluids, IV antiemetics, Tylenol as needed for pain. Will consult Case management for assistance for transition to next level of rehabilitation care. Mag unable to be obtained per discussion with lab unfortunately, phos pending. Maintain on CIWA protocol concurrently. #2. Elevated BP without hypertensive diagnosis: Upon presentation patient with significantly elevated BP, likely associate with #1, continue to closely monitor, as needed IV hydralazine in interim. #3. Hyperglycemia: Admission glucose 146, likely stress response given acute presentation #1 however to be cautious will obtain hemoglobin A1c. #4. Elevated LFT: Likely secondary to chronic alcohol abuse, admission total bilirubin 0.40, AST/ALT 31/68, alk phos 78, continue to treat as noted above. #5. Tobacco Abuse: Encouraged cessation, inpatient consultation per RT, NR if desired. #6. Anxiety and depression: Not on any regimen, will benefit from therapies with 180. #7. History of polysubstance abuse: Patient notes prior history of substances including methamphetamines which he notes he snorted. Denies any IV drug abuse. #8. DVT prophylaxis: Low risk, encourage ambulation. Charges/Coding Visit Charges Inpatient E&M: 52445 Init Hosp L3
[2021-12-23] MEDS: LORazepam 2 MG/ML Syringe IV (21:07)
[2021-12-23 21:28] LABS: Phosphorus 3.3 mg/dL (2.5-4.9)
--- NOTE | 2021-12-23 21:51 | ED.RN ---
Patient up,pacing room several times.
[2021-12-23 22:30] LABS: Hematocrit 46.8 % (40-54); Hemoglobin 17.2 g/dL (13.0-16.5); White Blood Count 4.5 K/mm3 (4.4-11.0)
[2021-12-23 22:31] LABS: Mean Corp Hgb Conc 36.8 g/dL (32-36); Mean Corpuscular Hgb 33.1 pg (27.0-32.0); RBC Distribution Width CV 12.3 % (11.6-14.6)
[2021-12-23 22:32] LABS: Mean Platelet Vol. 9.2 fl (6.2-12.0); Platelet Count 253 K/mm3 (150-450); RBC Distribution Width SD 40.6 fl (35.1-43.9)
[2021-12-23] MEDS: hydrOXYzine PAM 25 MG Capsule 50 MG PO (22:52)
[2021-12-23] MEDS: 0.9% Saline Lock 10 ML Syringe IV (22:52)
[2021-12-23] MEDS: Phenobarbital 32.4 MG Tablet 64.8 MG PO (22:52)
[2021-12-23] MEDS: Lactated Ringers 1,000 ML 125 ML IV (22:52)
[2021-12-23] MEDS: traZODone 100 MG Tablet PO (22:52)
[2021-12-24] VITALS (8 sets, daily range): BP systolic 116–141; BP diastolic 67–84; PULSE 79–128; RESP 16–18; TEMP 36.6–37.3; O2SAT 95–100
[2021-12-24] MEDS: Phenobarbital 32.4 MG Tablet 64.8 MG PO ×6 (02:51→22:39)
[2021-12-24] MEDS: Gabapentin 300 MG Capsule PO ×2 (02:52→13:01)
[2021-12-24] MEDS: 0.9% Saline Lock 10 ML Syringe IV (02:52)
[2021-12-24] MEDS: hydrOXYzine PAM 25 MG Capsule 50 MG PO ×3 (06:33→20:22)
--- NOTE | 2021-12-24 07:29 | PCM.PN.HOSP ---
Subjective Subjective Patient having sinus tachycardia, blood pressure 141/83. Patient was also tachycardic yesterday evening but heart rate was better during sleep. Objective Data Objective Data Vital Signs: Vital Signs Temp Pulse Resp BP Pulse Ox 97.8 F 105 H 18 123/67 H 97 12/24/21 06:24 12/24/21 06:24 12/24/21 06:24 12/24/21 06:24 12/24/21 06:24 Oxygen Delivery Method Room Air Weight: 186 lb 4.65 oz Body Mass Index (BMI) 25.2 Intake & Output: Intake and Output for Last 24 Hours 12/22/21 12/23/21 12/24/21 23:59 23:59 23:59 Intake Total 1000 / 1000 Balance 1000 / 1000 Lab / Micro Data Result Diagrams: 12/23/21 20:05 12/23/21 20:05 Labs: Laboratory Results - last 24 hr 12/23/21 20:05: WBC 4.5, RBC 5.20, Hgb 17.2 H, Hct 46.8, MCV 90.0, MCH 33.1 H, MCHC 36.8 H, RDW Std Deviation 40.6, RDW Coeff of Geremias 12.3, Plt Count 253, MPV 9.2, Immature Gran % (Auto) 0.200, Neut % (Auto) 60.3, Lymph % (Auto) 28.9, Labette % (Auto) 10.4 H, Eos % (Auto) 0.0, Baso % (Auto) 0.2, Absolute Neuts (auto) 2.7, Absolute Lymphs (auto) 1.28, Nucleated RBC % 0, Platelet Estimate ADEQUATE, RBC Morphology N CHROM, Anisocytosis RARE 12/23/21 20:05: Sodium 142, Potassium 3.6, Chloride 103, Carbon Dioxide 32.0, Anion Gap 7, BUN 13, Creatinine 1.07, Estim Creat Clear Calc 109.79, Est GFR (MDRD) Af Amer 103, Est GFR (MDRD) Non-Af 86, BUN/Creatinine Ratio 12.1, Glucose 146 H, Calcium 8.7, Total Bilirubin 0.40, AST 31, ALT 68 H, Alkaline Phosphatase 78, Total Protein 7.9, Albumin 4.2, Globulin 3.7, Albumin/Globulin Ratio 1.1 12/23/21 20:05: Ethyl Alcohol 401.0 H* 12/23/21 20:05: Phosphorus 3.3 Physical Exam Narrative Patient denies history of stigmata of chronic alcoholic liver disease including hematemesis, melena, ascites or alcoholic hepatitis. Currently feeling groggy General: Groggy, lethargy. Oriented x3. HEENT: Atraumatic, PERRLA, EOMI, Normocephalic Oral: No Gingival or Mucosal Lesions/ Ulcerations Neck: Supple, No JVD, Negative Carotid Bruits Lungs: Air entry diminished in bilateral lung bases. No crepitation/rhonchi Cardiovascular: Sinus tachycardia, Normal S1, Normal S2, No murmurs Abdomen: Bowel Sounds Present, Soft, Non Tender, Non-Distended : No renal angle tenderness. No suprapubic tenderness. Extremities: No edema, Capillary Refill Less than 3 Seconds Skin: No rashes, No breakdown Musculoskeletal: No Tenderness to Palpation of Joints or Extremities Neurological: Cranial nerves II-XII grossly intact, DTR 2+/4 and Symmetrical Psych/Mental Status: Flat affect. Assessment & Plan Assessment/Plan (1) Acute alcohol withdrawal: PLAN: The patient is a 31 y/o M with history of chronic alcohol use and polysubstance use was admitted with acute alcohol withdrawal syndrome. w/ PMHx: EtOH abuse (~1/5th liquor, malt drinks daily), Hx polysubstance abuse (Meth hx, snorted, denies IVDA), Anxiety and Depression, Tobacco use who presents to the [facility] on 12/23[facility]21 w/ noted acute EtOH withdrawal, onset starting early afternoon following last EtOH intake 2 hours prior to ED arrival but notes he has been decreasing his amount. #1. Acute EtOH Withdrawal syndrome with history of chronic alcohol use disorder with dependence, tolerance: The patient drinks 1/5 bottle of vodka every day. Patient is currently tachycardic, groggy and lethargic. Clonidine given to control heart rate. Patient is on phenobarbital along with other adjunctive medications including gabapentin, Vistaril, Bentyl, Catapres and Tylenol and Motrin. On thiamine folic acid. CIWA monitoring given Ativan as needed as per CIWA score #2. Elevated BP most probably due to acute alcohol withdrawal: Patient blood pressure was high when he came in. Will monitor and control with Catapres along with other alcohol withdrawal stabilization medications. On IV hydralazine as needed. #3. Hyperglycemia: Admission glucose 146, likely stress response due to acute alcohol withdrawal syndrome. A1c 5.0%. Diabetes mellitus ruled out. #4. Chronic alcoholic hepatitis: Admission total bilirubin 0.40, AST/ALT 31/68, alk phos 78. #5. Tobacco Abuse: Encouraged cessation #6. Anxiety and depression: Not on any regimen, will benefit from therapies with 180. #7. History of polysubstance abuse: Patient notes prior history of substances including methamphetamines which he notes he snorted. Denies any IV drug abuse. #8. DVT prophylaxis: Low risk, encourage ambulation. Charges/Coding Visit Charges Inpatient E&M: 50551 Subs Hosp L2
[2021-12-24] MEDS: Thiamine Hydrochloride 100 MG Tablet PO (10:51)
[2021-12-24] MEDS: Folic Acid 1 MG Tablet PO (10:51)
[2021-12-24 11:29] LABS: Amphetamine Urine VISTA NEGATIVE (<1000 ng/mL); Barbiturate Urine VISTA POSITIVE (< 200 ng/mL); Benzodiazepine Urine VISTA NEGATIVE (< 200 ng/mL); Cocaine Urine VISTA NEGATIVE (< 300 ng/mL); Ecstacy Urine VISTA NEGATIVE (< 500 ng/mL); Methadone Urine VISTA NEGATIVE (< 300 ng/mL); PCP Urine VISTA NEGATIVE (< 25 ng/mL); THC Urine VISTA NEGATIVE (< 50 ng/mL); Vista UDS pH Range 7
[2021-12-24] MEDS: cloNIDine HCl 0.2 MG Tablet PO (12:52)
--- NOTE | 2021-12-24 13:03 | EKG12_ITS ---
Test Reason : DETOX Blood Pressure : / mmHG Vent. Rate : 109 BPM Atrial Rate : 109 BPM P-R Int : 160 ms QRS Dur : 086 ms QT Int : 338 ms P-R-T Axes : 047 -08 002 degrees QTc Int : 455 ms Sinus tachycardia Otherwise normal ECG Confirmed by DAIJA LANDA, RO ([id number]), editor producer JESSICA BARTLETT ([id number]) on 12/26/2021 11:08:33 AM Referred By: SUSANA Confirmed By:RO CHOE MD
[2021-12-24 14:01] LABS: Troponin-I HS 6 pg/mL (3.0-78.0)
[2021-12-24] MEDS: Acetaminophen 325 MG Tablet 650 MG PO (15:34)
--- NOTE | 2021-12-24 16:13 | EKG12_ITS ---
Test Reason : Blood Pressure : / mmHG Vent. Rate : 104 BPM Atrial Rate : 104 BPM P-R Int : 140 ms QRS Dur : 086 ms QT Int : 334 ms P-R-T Axes : 051 012 -07 degrees QTc Int : 439 ms Sinus tachycardia Nonspecific T wave abnormality Abnormal ECG Confirmed by DAIJA LANDA, RO ([id number]), supervising editor trailer JESSICA BARTLETT ([id number]) on 12/30/2021 1:14:36 PM Referred By: SUSANA Confirmed By:RO CHOE MD
[2021-12-24] MEDS: traZODone 100 MG Tablet PO (20:22)
[2021-12-25 02:15] VITALS: BP 131/95; PULSE 71; RESP 18; TEMP 36.7; O2SAT 99
[2021-12-25] MEDS: Phenobarbital 32.4 MG Tablet 64.8 MG PO ×6 (02:26→22:24)
[2021-12-25] MEDS: hydrOXYzine PAM 25 MG Capsule 50 MG PO ×4 (02:29→22:24)
[2021-12-25] MEDS: Gabapentin 300 MG Capsule PO ×2 (02:29→15:24)
[2021-12-25 09:15] VITALS: BP 142/93; PULSE 97; RESP 16; TEMP 36.3; O2SAT 99
[2021-12-25] MEDS: Ibuprofen 600 MG Tablet PO (09:21)
[2021-12-25] MEDS: Thiamine Hydrochloride 100 MG Tablet PO (09:21)
[2021-12-25] MEDS: Folic Acid 1 MG Tablet PO (09:21)
--- NOTE | 2021-12-25 11:31 | NURSING ---
pt reports that upon discharge, transportation will be provided by his dad, Shravan. phone number listed in chart verified as correct.
--- NOTE | 2021-12-25 15:03 | ADDICTION ---
This teletypewriter installer met with PT to conduct ASAM, MSE, AUDIT, DUDIT assessments and to plan for d/c. PT A+Ox4 and participated actively. All assessments completed and placed in PT's chart. PT plans to f/u with [facility] for follow-up treatment services. PT did not indicate a need for transportation post d/c from [facility].
[2021-12-25 15:15] VITALS: BP 147/93; PULSE 94; RESP 16; TEMP 37; O2SAT 98
[2021-12-25] MEDS: Sodium Chloride 0.65% 1 SPRAY SPRAY.BTL 2 SPRAY NASAL (15:21)
[2021-12-25] MEDS: Acetaminophen 325 MG Tablet 650 MG PO (15:24)
--- NOTE | 2021-12-25 15:33 | PCM.PN.HOSP ---
Subjective Subjective Patient has tactile hallucination as stinging pain in the chest. Patient had EKG which shows sinus tachycardia at 104/min. Patient was tachycardic heart rate in 120s yesterday rate is controlled on clonidine. Patient also has auditory hallucinations. High-sensitivity troponin negative. Objective Data Objective Data Vital Signs: Vital Signs Temp Pulse Resp BP Pulse Ox 97.4 F L 97 16 142/93 H 99 12/25/21 09:15 12/25/21 09:15 12/25/21 09:15 12/25/21 09:15 12/25/21 09:15 Oxygen Delivery Method Room Air Weight: 186 lb 4.65 oz Body Mass Index (BMI) 25.2 Intake & Output: Intake and Output for Last 24 Hours 12/23/21 12/24/21 12/25/21 23:59 23:59 23:59 Intake Total 1900 / 2300 1650 / 1650 Output Total 0 / 0 Balance 1900 / 2300 1650 / 1650 Medical Nutrition Assessment Dietitian: Malnutrition Criteria Met Start: 12/24/21 12:18 Freq: Status: Active Protocol: Document 12/24/21 12:18 RMA (Rec: 12/24/21 12:19 RMA [id number]) Nutrition Malnutrition Evidence of Malnutrition Exists Yes Malnutrition (severe): Social/Behavioral/ Environmental Evidenced By Suboptimal Energy Intake ( Severe),Weight Loss (Severe) Clinical Problem Chronic Disease or Condition Related Malnutrition Etiology Severe protein-calorie malnutrition in the context of social circumstance related to chronic alcohol abuse and inadequate oral intake of nutrient-dense food/beverage Signs/Symptoms as evidenced by ~11-12% wt loss x 6 months and oral intake meeting less than 50% estimated nutrition needs prior to admission while abusing alcohol Status Active Problem Recommendation Dietitian Recommendations/Changes Continue regular diet with 3 snacks per day---will add 1-2 oz extra protein at meals. Will d/c ensure enlive w/ medpass and encourage good intake at meals of nutrient- dense foods. Offer ONS as needed if PO fails at meals and/or weight declines. Lab / Micro Data Result Diagrams: 12/23/21 20:05 12/23/21 20:05 Labs: Laboratory Results - last 24 hr 12/23/21 20:05: Magnesium 2.0 Physical Exam Narrative Heart rate is controlled. Overall, patient is more awake and alert General: Awake, alert, cooperative oriented x3. HEENT: Atraumatic, PERRLA, EOMI, Normocephalic Oral: No Gingival or Mucosal Lesions/ Ulcerations Neck: Supple, No JVD, Negative Carotid Bruits Lungs: Air entry diminished in bilateral lung bases. No crepitation/rhonchi Cardiovascular: Sinus tachycardia, Normal S1, Normal S2, No murmurs Abdomen: Bowel Sounds Present, Soft, Non Tender, Non-Distended. Liver not enlarged. : No renal angle tenderness. No suprapubic tenderness. Extremities: No edema, Capillary Refill Less than 3 Seconds Skin: No rashes, No breakdown Musculoskeletal: No Tenderness to Palpation of Joints or Extremities Neurological: Cranial nerves II-XII grossly intact, DTR 2+/4 and Symmetrical Psych/Mental Status: Flat affect. Assessment & Plan Assessment/Plan (1) Acute alcohol withdrawal: PLAN: The patient is a 31 y/o M with history of chronic alcohol use and polysubstance use was admitted with acute alcohol withdrawal syndrome. w/ PMHx: EtOH abuse (~1/5th liquor, malt drinks daily), Hx polysubstance abuse (Meth hx, snorted, denies IVDA), Anxiety and Depression, Tobacco use who presents to the [facility] on 12/23/21 w/ noted acute EtOH withdrawal, onset starting early afternoon following last EtOH intake 2 hours prior to ED arrival but notes he has been decreasing his amount. #1. Acute EtOH Withdrawal syndrome with history of chronic alcohol use disorder with dependence, tolerance: The patient drinks 1/5 bottle of vodka every day. Patient is currently tachycardic, groggy and lethargic. Clonidine given to control heart rate. Patient is on phenobarbital along with other adjunctive medications including gabapentin, Vistaril, Bentyl, Catapres and Tylenol and Motrin. On thiamine folic acid. CIWA monitoring given Ativan as needed as per CIWA score 2/10: Discussed with the onsite case manager. Patient has hallucination auditory and tactile hallucination. Needs onsite case manager 180 evaluation for possible need of inpatient substance disorder rehab. His tachycardia is controlled #2. Elevated BP most probably due to acute alcohol withdrawal: Patient blood pressure was high when he came in. Will monitor and control with Catapres along with other alcohol withdrawal stabilization medications. On IV hydralazine as needed. 12/25: Blood pressure is better #3. Hyperglycemia: Admission glucose 146, likely stress response due to acute alcohol withdrawal syndrome. A1c 5.0%. Diabetes mellitus ruled out. #4. Chronic alcoholic hepatitis: Admission total bilirubin 0.40, AST/ALT 31/68, alk phos 78. #5. Tobacco Abuse: Encouraged cessation #6. Anxiety and depression: Not on any regimen, will benefit from therapies with 180. #7. History of polysubstance abuse: Patient notes prior history of substances including methamphetamines which he notes he snorted. Denies any IV drug abuse. #8. DVT prophylaxis: Low risk, encourage ambulation. Charges/Coding Visit Charges Inpatient E&M: 70095 Subs Hosp L2
[2021-12-25 22:37] VITALS: BP 135/84; PULSE 71; RESP 16; TEMP 36.3; O2SAT 97
[2021-12-26] MEDS: Phenobarbital 32.4 MG Tablet 64.8 MG PO ×3 (02:58→12:12)
[2021-12-26 03:01] VITALS: BP 121/81; PULSE 70; RESP 16; TEMP 36.1; O2SAT 97
[2021-12-26 09:00] VITALS: BP 140/92; PULSE 99; RESP 16; TEMP 36.6; O2SAT 100
[2021-12-26] MEDS: Thiamine Hydrochloride 100 MG Tablet PO (09:05)
[2021-12-26] MEDS: Folic Acid 1 MG Tablet PO (09:05)
--- NOTE | 2021-12-26 10:28 | PCM.DC ---
Discharge Instructions Diet Discharge Diet: No restrictions Activity Discharge Activity: May Not Drive Dressing / Incision Call your doctor if you observe: Fever of 101 or Higher, Coldness, Increased Pain, Numbness or Tingling, Change in Color, Inability to urinate, Inability to have a bowel movement, Shortness of breath, Dizziness, Fainting spells, Swelling in the ankles, Chest pain, Prolonged hiccupping, Increased palpitations (irregular heartbeat), Calf discomfort and Uncontrolled pain Follow Up Care Test Results: Test results from this visit will be discussed in further detail at your follow-up appointment, if applicable. Discharge Plan Admission Admit Date/Time: 12/23/21 21:01 Primary Reason for Your Visit: Acute alcohol withdrawal syndrome Attending Provider: Jun Javier Primary Care Provider: Care Physician,No Primary Discharge Orders/Prescriptions Prescriptions: New thiamine HCl (vitamin B1) 100 mg tablet 100 mg PO DAILY Qty: 30 RF: 0 folic acid 1 mg tablet 1 mg PO DAILY Qty: 30 RF: 0 cyanocobalamin (vitamin B-12) 5,000 mcg capsule 5,000 mcg PO DAILY Qty: 30 RF: 0 Referrals / Follow Up: Nina Hernadez DO [STAFF PHYSICIAN] - Within 1 Week (for outpatient Vivitrol) Care Physician,No Primary [Primary Care Provider] - Disposition Disposition (needs filled in before D/C Order can be placed): Home, Self Care
--- NOTE | 2021-12-26 10:32 | PCM.DC.SUM ---
Providers Date of Admission: 12/23/21 Date of Discharge: 12/26/21 Primary Care Physician: No Primary Care Phys Reason For Visit: ETOH WITHDRAWL Diagnosis Discharge Diagnosis (1) Acute alcohol withdrawal: Status: Acute Medications at Discharge Home Medications cyanocobalamin (vitamin B-12) 5,000 mcg PO DAILY #30 cap 12/26/21 folic acid 1 mg PO DAILY #30 tab 12/26/21 thiamine HCl (vitamin B1) 100 mg PO DAILY #30 tab 12/26/21 Hospital Course Summary of Care Provided Hospital Course: The patient is a 31 y/o M with history of chronic alcohol use and polysubstance use was admitted with acute alcohol withdrawal syndrome. #1. Acute EtOH Withdrawal syndrome with history of chronic alcohol use disorder with dependence, tolerance: The patient drinks 1/5 bottle of vodka every day. Patient is currently tachycardic, groggy and lethargic. Clonidine given to control heart rate. Patient is on phenobarbital along with other adjunctive medications including gabapentin, Vistaril, Bentyl, Catapres and Tylenol and Motrin. On thiamine folic acid. CIWA monitoring given Ativan as needed as per CIWA score. Patient has hallucination auditory and tactile hallucination which got resolved. Was evaluated by director of casework department 180 evaluation and recommended outpatient rehab. Patient might be benefited by Vivitrol. His tachycardia is controlled #2. Elevated BP most probably due to acute alcohol withdrawal: Patient blood pressure was high when he came in. Will monitor and control with Catapres along with other alcohol withdrawal stabilization medications. On IV hydralazine as needed. Blood pressure is controlled #3. Hyperglycemia: Admission glucose 146, likely stress response due to acute alcohol withdrawal syndrome. A1c 5.0%. Diabetes mellitus ruled out. #4. Chronic alcoholic hepatitis: Admission total bilirubin 0.40, AST/ALT 31/68, alk phos 78. #5. Tobacco Abuse: Encouraged cessation. #6. Anxiety and depression: Not on any regimen, will benefit from therapies with 180. #7. History of polysubstance abuse: Patient notes prior history of substances including methamphetamines which he notes he snorted. Denies any IV drug abuse. #8. DVT prophylaxis: Low risk, encourage ambulation. Discharge medication reconciliation done. Discharge follow-up instructions completed. Discharge process discussed with the patient and all questions were answered to patient's satisfaction. Prescriptions for thiamine, folic acid and vitamin B12 sent to the patient's pharmacy. Total time spent, exact 35 minutes on discharge meds reconciliation, examination, coordination of care with nurses and ancillary staff, review of imaging and blood test and discussion with the patient on follow-up instructions Physical Exam Narrative Seen and examined on 12/26. Heart rate is controlled. Patient denies any suicidal ideation, hallucinations or delusions last night. Patient had bowel movement. General: Awake, alert, cooperative oriented x3. HEENT: Atraumatic, PERRLA, EOMI, Normocephalic Oral: No Gingival or Mucosal Lesions/ Ulcerations Neck: Supple, No JVD, Negative Carotid Bruits Lungs: Air entry diminished in bilateral lung bases. No crepitation/rhonchi Cardiovascular: Sinus tachycardia, Normal S1, Normal S2, No murmurs Abdomen: Bowel Sounds Present, Soft, Non Tender, Non-Distended. Liver not enlarged. : No renal angle tenderness. No suprapubic tenderness. Extremities: No edema, Capillary Refill Less than 3 Seconds Skin: No rashes, No breakdown Musculoskeletal: No Tenderness to Palpation of Joints or Extremities Neurological: Cranial nerves II-XII grossly intact, DTR 2+/4 and Symmetrical Psych/Mental Status: Flat affect. Medical Records Data Medical Nutrition Assessment Dietitian: Malnutrition Criteria Met Start: 12/24/21 12:18 Freq: Status: Active Protocol: Document 12/24/21 12:18 RMA (Rec: 12/24/21 12:19 RMA [id number]) Nutrition Malnutrition Evidence of Malnutrition Exists Yes Malnutrition (severe): Social/Behavioral/ Environmental Evidenced By Suboptimal Energy Intake ( Severe),Weight Loss (Severe) Clinical Problem Chronic Disease or Condition Related Malnutrition Etiology Severe protein-calorie malnutrition in the context of social circumstance related to chronic alcohol abuse and inadequate oral intake of nutrient-dense food/beverage Signs/Symptoms as evidenced by ~11-12% wt loss x 6 months and oral intake meeting less than 50% estimated nutrition needs prior to admission while abusing alcohol Status Active Problem Recommendation Dietitian Recommendations/Changes Continue regular diet with 3 snacks per day---will add 1-2 oz extra protein at meals. Will d/c ensure enlive w/ medpass and encourage good intake at meals of nutrient- dense foods. Offer ONS as needed if PO fails at meals and/or weight declines. Weight / BMI Weight Weight: 186 lb 4.65 oz Body Mass Index (BMI) 25.2 ABG / Lab / Microbiology Data Result Diagrams: 12/23/21 20:05 12/23/21 20:05 D/C Instructions Discharge Diet: No restrictions Call your doctor if you observe: Fever of 101 or Higher, Coldness, Increased Pain, Numbness or Tingling, Change in Color, Inability to urinate, Inability to have a bowel movement, Shortness of breath, Dizziness, Fainting spells, Swelling in the ankles, Chest pain, Prolonged hiccupping, Increased palpitations (irregular heartbeat), Calf discomfort and Uncontrolled pain Meaningful Use Info Meaningful Use Diagnoses (Choose all that apply): None applicable Discharge Plan Admission Admit Date/Time: 12/23/21 21:01 Primary Reason for Your Visit: Acute alcohol withdrawal syndrome Attending Provider: Jun Javire Primary Care Provider: Care Physician,No Primary Discharge Orders/Prescriptions Prescriptions: New thiamine HCl (vitamin B1) 100 mg tablet 100 mg PO DAILY Qty: 30 RF: 0 folic acid 1 mg tablet 1 mg PO DAILY Qty: 30 RF: 0 cyanocobalamin (vitamin B-12) 5,000 mcg capsule 5,000 mcg PO DAILY Qty: 30 RF: 0 Referrals / Follow Up: Nina Hernadez DO [STAFF PHYSICIAN] - Within 1 Week (for outpatient Vivitrol) Care Physician,No Primary [Primary Care Provider] - Disposition Disposition (needs filled in before D/C Order can be placed): Home, Self Care Charges/Coding Visit Charges Inpatient E&M: 71352 Disch Hosp
[2021-12-26 12:14] VITALS: BP 153/111; PULSE 100; RESP 16; TEMP 36.9; O2SAT 99
== END 2021-12-26 13:49 | disposition home or self-care (01) | DRG 896 ==
LOC: ED 20:50 → MS3 21:34
PROVIDERS: Admitting Provider Family Medicine; Emergency Provider Emergency Medicine; Visit Provider Internal Medicine
DX: F10.129 Alcohol abuse with intoxication, unspecified (principal); E43 Unspecified severe protein-calorie malnutrition; K70.10 Alcoholic hepatitis without ascites; F10.239 Alcohol dependence with withdrawal, unspecified; F17.210 Nicotine dependence, cigarettes, uncomplicated; F41.9 Anxiety disorder, unspecified; R73.9 Hyperglycemia, unspecified; R03.0 Elevated blood-pressure reading, without diagnosis of hypertension; F32.A Depression, unspecified; Z68.25 Body mass index [BMI] 25.0-25.9, adult
CPT/HCPCS: 36415; 80053; 80307; 82077; 83036; 83735; 84100; 84484; 85025; 93005; 97802; 99283; 99406; J7120; A4216